=== PATIENT | female | born 1980 | race Native Hawaiian/Other Pacific Islander ===

== ENCOUNTER → 2016-09-18 | Outpatient (CLI) | payer OTHER ==
[~2016-09-18] MED LIST: GASTROGRAFIN SOLUTION 30ML (Q9963) As Ordered ONE; ISOVUE-370 76% 100ML VIAL (Q9967) As Ordered ONE
--- NOTE | 2016-09-18 14:56 | REP ---
CT ABDOMEN AND PELVIS WITH AND WITHOUT IV CONTRAST AND WITH ORAL CONTRAST: TECHNIQUE: Axial noncontrast images through the abdomen followed by contrast-enhanced images through the abdomen and pelvis using 100 mL Isovue 370 intravenous contrast material, with coronal and sagittal reformations. Visualized lung bases demonstrate no infiltrate. Liver, spleen, adrenals, pancreas, and kidneys are essentially unremarkable except for a 3 mm calculus in the lower pole of the right renal collecting system. Patient has had a prior cholecystectomy. There is no abnormal aortic aneurysm. There is no adenopathy. There is no free air of free fluid. There is no bowel wall thickening. There is no evidence of appendicitis. There is no pelvic mass. The urinary bladder is mildly distended and appears grossly unremarkable. There is no anterior abdominal wall defect. Visualized osseous structures appear unremarkable. IMPRESSION: Status post cholecystectomy. Small intrarenal calculus lower pole right kidney. No hydronephrosis. No other acute abnormality. Signed by Van Staples MD 09/18/2016 04:41 P
== END ==
LOC: M RAD 12:19
PROVIDERS: ATTEND Family Medicine
DX: R10.9 Unspecified abdominal pain (principal); N20.0 Calculus of kidney
CPT/HCPCS: 74178; Q9963; Q9967

== ENCOUNTER → 2017-06-14 | Outpatient (REF) | payer OTHER | LOC: M SFHCLERA 20:22 | DX: R30.0 Dysuria (principal) | CPT/HCPCS: 87186 ==